=== PATIENT | female | born 1985 | race Caucasian/White ===

== ENCOUNTER 2017-01-14 10:28 | Emergency (ER) | payer OTHER ==
[~2017-01-14] VITALS: Ht 157.5 cm; Wt 70.8 kg
[2017-01-14] MEDS ORDERED: prenatal vitamin PO (10:36)
[2017-01-14 11:23] LABS: BASO % 0.2 % (0.0-1.0); EOS % 0.6 % (0.0-3.0); LARGE UNSTAINED CELL # 0.2 K/mm3 (0.0-0.4); LARGE UNSTAINED CELL % 1.9 % (0.0-4.0); LYMPH # 1.5 K/mm3 (1.5-4.5); MEAN CORPUSCULAR HEMOGLOBIN 31.7 pg (27.0-33.0); MEAN CORPUSCULAR VOLUME 90.6 fl (80.0-96.0); MONO # 0.6 K/mm3 (0.0-0.8); MONO % 7.8 % (0.0-5.0); NEUTROPHILS # 5.7 K/mm3 (1.8-7.7); NEUTROPHILS % 70.5 % (36.0-66.0); PLATELET COUNT, AUTOMATED 194 k/mm3 (150-450); RED CELL DISTRIBUTION WIDTH 12.3 % (11.5-14.5); WHITE BLOOD COUNT 8.1 K/mm3 (4.0-10.0)
[2017-01-14 11:46] LABS: ANION GAP 7 MEQ/L (8-16); BLOOD UREA NITROGEN 7 MG/DL (7-18); CALCIUM LEVEL 8.6 MG/DL (8.5-10.1); CARBON DIOXIDE LEVEL 26 MEQ/L (21-32); CHLORIDE LEVEL 107 MEQ/L (98-107); CREATININE FOR GFR 0.52 MG/DL (0.55-1.02); GLOMERULAR FILTRATION RATE > 60.0 (>60); GLUCOSE, FASTING 81 MG/DL (70-105); POTASSIUM SERUM 3.7 MEQ/L (3.5-5.1); SODIUM LEVEL 140 MEQ/L (136-145)
--- NOTE | 2017-01-14 12:41 | REP ---
Duplex extremity venous ultrasound: Bilateral lower extremities. History: . Hemoptysis. Question DVT. Findings: The deep veins are anechoic and fully compressible from the groin to the popliteal fossa in the right and left lower extremity. Color flow imaging is homogeneous. Spectral Doppler interrogation demonstrates intact respiratory variation in flow and normal manual augmentation of flow. There is no evidence of deep vein thrombosis. Impression: Negative bilateral lower extremity duplex venous ultrasound. No evidence of deep vein thrombosis. Signed by Celso Larios MD 01/14/2017 12:33 P
--- NOTE | 2017-01-14 12:57 | REP ---
Chest one-view HISTORY: Hemoptysis Comparison: None A small area of atelectasis is present in the right lower lobe. The left lung is clear. The heart is normal in size. The pulmonary vasculature is normal in appearance. Impression: Right lower lobe atelectasis Signed by Anderson Velez MD 01/14/2017 12:48 P
[2017-01-14] MEDS ORDERED: TESS100C PO (13:49)
[2017-01-14 13:59] VITALS: BP 98/58
--- NOTE | 2017-01-14 20:16 | ECGEPIP ---
Stationary ECG Study [facility] - ED Test Date: 2017-01-14 Pat Name: JESUS SANDOVAL Department: Room: - Gender: F Operations Advisor: JMarisa : 1985 Requested By: Kathy Diggs Order Number: [id number] Reading MD: Kathy Diggs Measurements Intervals [place] Rate: 68 P: 35 [place]: 165 QRS: -12 QRSD: 98 T: 2 QT: 360 QTc: 385 Interpretive Statements SINUS RHYTHM WITH SINUS ARRHYTHMIA POSSIBLE RIGHT VENTRICULAR CONDUCTION DELAY POSSIBLE ANTERIOR MYOCARDIAL INFARCTION, OF INDETERMINATE AGE NSTTW ABNORMALITY NO PRIOR FOR COMPARISON Electronically Signed On 01-14-2017 20:16:41 EDT by Kathy Diggs
== END 2017-01-14 14:07 | disposition home or self-care (01) ==
LOC: M ED 11:47
DX: J20.9 Acute bronchitis, unspecified (principal); R04.2 Hemoptysis

== ENCOUNTER 2017-03-09 15:14 | Outpatient (CLI) | payer OTHER ==
[~2017-03-09] VITALS: Ht 157.5 cm; Wt 73.0 kg
[~2017-03-09 15:14] MED LIST: TESS100C PO; prenatal vitamin PO
[2017-03-09 15:27] VITALS: BP 119/53
== END 2017-03-09 17:10 | disposition home or self-care (01) ==
LOC: M LDO 15:14
PROVIDERS: ATTEND Advanced Practice Midwife
DX: O47.1 False labor at or after 37 completed weeks of gestation (principal); Z3A.40 40 weeks gestation of pregnancy

== ENCOUNTER 2017-03-09 22:12 | Inpatient (IN) | payer OTHER ==
[~2017-03-09] VITALS: Ht 157.5 cm; Wt 75.0 kg
[2017-03-09 22:20] VITALS: BP 123/58
[2017-03-09 22:36] VITALS: BP 123/58
[2017-03-10] VITALS (9 sets, daily range): BP systolic 110–135; BP diastolic 55–68
[2017-03-10 00:56] LABS: MEAN CORPUSCULAR HEMOGLOBIN 31.1 pg (27.0-33.0); MEAN CORPUSCULAR VOLUME 91.5 fl (80.0-96.0); RED CELL DISTRIBUTION WIDTH 13.1 % (11.5-14.5); WHITE BLOOD COUNT 15.7 K/mm3 (4.0-10.0)
[2017-03-10] MEDS ORDERED: OXYTOCIN 30 UNITS IN 0.9% NaCl 500ML IV BAG (J2590) As Ordered ONE (01:03)
[2017-03-10] MEDS ORDERED: LR 1,000 ML IV SCH (01:18)
[2017-03-10] MEDS ORDERED: LACTATED RINGER'S 1000 ML IV STA (01:18)
[2017-03-10] MEDS ORDERED: METHYLERGONOVINE MALEATE 0.2 MG TAB PO PRN (02:45)
[2017-03-10] MEDS ORDERED: ACETAMINOPHEN 500 MG TAB PO PRN (02:45)
[2017-03-10] MEDS ORDERED: DOCUSATE SODIUM 100 MG CAP PO PRN (02:45)
[2017-03-10] MEDS ORDERED: DIBUCAINE 1% OINTMENT 30GM TOP PRN (02:45)
[2017-03-10] MEDS: IBUPROFEN 800 MG TAB PO PRN ×2 (03:04→19:21)
[2017-03-10] MEDS: PRENATAL VITAMIN TAB PO SCH (08:23)
[2017-03-11 06:00] VITALS: BP 110/57
--- NOTE | 2017-03-11 07:35 | DS.PDOC ---
Discharge Summary General Date of Admission Mar 10, 2017 at 00:42 Date of Discharge [id number] Discharge Summary PROCEDURES PERFORMED DURING STAY: spontaneous vaginal delivery ADMITTING DIAGNOSIS: 1. active labor DISCHARGE DIAGNOSES: 1. Healthy male HOSPITAL COURSE: Admitted for active labor and delivery. Uncomplicated, see delivery note. DISCHARGE MEDICATIONS: Motrin, eventual Nexplanon Physical exam: see note from this morning LABORATORY DATA: Please see below. ACTIVITY: as tolerated. Nothing in vagina for 6 weeks. DIET: regular DISPOSITION:stable TIME SPENT ON DISCHARGE: Greater than 15 minutes. Vital Signs/I&Os Vital Signs Date Time Temp Pulse Resp B/P (MAP) Pulse Ox O2 Delivery O2 Flow Rate FiO2 03/11/17 06:00 97.7 53 16 110/57 (74) 98 Room Air Discharge Medications Scheduled [ vitamin] , TAB PO DAILY, (Reported) Allergies Coded Allergies: No Known Allergies (Unverified , 01/14/17) ANA LAURA HOOD MD Mar 11, 2017 07:35
--- NOTE | 2017-03-11 07:36 | IPNPDOC ---
Text Note Date of Service The patient was seen on 03/11/17. NOTE PPD1 prog note States feeling well, no complaints. No heavy VB. Pain controlled. Voiding, ambulatory. Bonding well and bottle feeding well. VSSAF CTAB RRR Ut at U-2, firm Ext no CCE a/p: Doing well. d/c this morning. To bonding if baby not released. Sessions VS,Hannah, I+O VSHannah, I+O Vital Signs Date Time Temp Pulse Resp B/P (MAP) Pulse Ox O2 Delivery O2 Flow Rate FiO2 03/11/17 06:00 97.7 53 16 110/57 (74) 98 Room Air SESSIONS,ANA LAURA Ferrera MD Mar 11, 2017 07:36
[2017-03-11] MEDS ORDERED: COLA100C3 PO (08:51)
[2017-03-11] MEDS ORDERED: IBUP-1114 PO (08:51)
[2017-03-11] MEDS ORDERED: ACET50TA PO (08:51)
[2017-03-11] MEDS: PRENATAL VITAMIN TAB PO SCH (09:00)
--- NOTE | 2017-03-16 08:34 | IPN ---
DATE: 03/11/2017 This patient and requested circumcision of their male . After discussing risks and benefits of circumcision, the medical and nonmedical indications, the penile block and aftercare, they expressed understanding of penile block and aftercare, signed and witnessed the consent form. We await the clearance by the dairy bacteriologist.
== END 2017-03-11 13:50 | disposition home or self-care (01) | DRG 775 ==
LOC: M LDO 22:12 → M LDI 03-10 00:42 → M OBS 03-10 04:40
PROVIDERS: ADMIT Advanced Practice Midwife; ATTEND Advanced Practice Midwife
PROC: 10E0XZZ Delivery of Products of Conception, External Approach (ICD-10-PCS; principal; 2017-03-10)
DX: O48.0 Post-term pregnancy (principal); Z37.0 Single live birth; Z3A.40 40 weeks gestation of pregnancy; O64.5XX0 Obstructed labor due to compound presentation, not applicable or unspecified; O69.82X0 Labor and delivery complicated by other cord entanglement, without compression, not applicable or unspecified; Z98.82 Breast implant status; Z79.899 Other long term (current) drug therapy